=== PATIENT | female | born 1990 | race Two or more races ===

== ENCOUNTER 2018-10-17 05:42 | Day surgery (SDC) | payer OTHER ==
[~2018-10-17] VITALS: Ht 154.9 cm; Wt 81.6 kg
--- NOTE | 2018-10-17 06:01 | NUR ---
PACIENTE ALERTA Y ORIENTADA ES REFERIDA A ARDEN DE EMERGENCIAS POR DR BERNARD PARA QUE SEA ADMITIDA YA QUE LE REALIZARAN UN PROCEDIMIENTO DE RASPE.
== END 2018-10-17 13:00 | disposition home or self-care (01) ==
LOC: ER 05:42 → SEC-K 05:50 → CIR.AMB 07:00 → EDSTATUS 07:00 → SEC-K 12:50 → CIR.AMB 13:00
DX: O02.1 Missed abortion (principal)